=== PATIENT | female | born 1965 | race Caucasian/White ===

== ENCOUNTER → 2017-02-04 | Outpatient (CLI) | payer BC ==
[~2017-02-04] MED LIST: LISI-788 PO
[2017-02-04 12:59] LABS: BASO % 0.2 %; BASO ABS # 0.01 K/uL (0-0.2); COMPLETE YES; EOS % 0.9 %; HEMATOCRIT 46.3 % (37-47); IG% 0.2 %; LYMPH % 40.2 %; LYMPH ABS # 2.35 K/uL (1.2-3.4); MEAN CELL VOLUME 85.4 fL (80-100); MEAN CORPUSCULAR HEMOGLOBIN 28.8 pg (25-34); MEAN CORPUSCULAR HGB CONC 33.7 g/dl (32-36); MEAN PLATELET VOLUME 11.3 fL (7.4-10.4); MONO % 9.1 %; NEUT % 49.4 %; PLATELET COUNT 196 K/uL (130-400); RED BLOOD COUNT 5.42 M/uL (4.2-5.4); WHITE BLOOD COUNT 5.85 K/uL (4.8-10.8)
[2017-02-04 13:41] LABS: BLOOD UREA NITROGEN 18 mg/dl (7-18); CARBON DIOXIDE 28 mmol/L (21-32); CHLORIDE 106 mmol/L (98-107); CREATININE 0.79 mg/dl (0.60-1.20); GLUCOSE 92 mg/dl (70-99); SODIUM 143 mmol/L (136-145)
[2017-02-04 13:47] LABS: CALCIUM 9.2 mg/dl (8.5-10.1)
[2017-02-04 13:51] LABS: ALB/GLOB RATIO 1.3 (0.9-2); ALKALINE PHOSPHATASE 84 U/L (45-117); ALT/SGPT 24 U/L (12-78); AST/SGOT 14 U/L (15-37); CHOLESTEROL 188 mg/dl (0-200); CHOLESTEROL/HDL RATIO 4.6; HDL CHOLESTEROL 41 mg/dl; LDL CHOLESTEROL CALCULATED 124 mg/dl; TRIGLYCERIDES 116 mg/dl (0-150); VERY LOW DENSITY LIPOPROT CALC 23 mg/dl
[2017-02-04 14:28] LABS: LYME DISEASE AB IGG NEG (NEG)
[2017-02-04 14:32] LABS: LYME DISEASE AB IGM NEG (NEG)
== END | disposition home or self-care (01) ==
LOC: C.LABMFLN 08:53
PROVIDERS: ATTEND Family Medicine
DX: M25.50 Pain in unspecified joint (principal); W57.XXXA Bitten or stung by nonvenomous insect and other nonvenomous arthropods, initial encounter; E78.5 Hyperlipidemia, unspecified; I10 Essential (primary) hypertension

== ENCOUNTER → 2017-06-10 | Outpatient (CLI) | payer BC ==
[2017-06-10 14:28] LABS: BASO % 0.3 %; BASO ABS # 0.02 K/uL (0-0.2); COMPLETE YES; HEMATOCRIT 45.9 % (37-47); IG% 0.1 %; LYMPH % 36.7 %; LYMPH ABS # 2.53 K/uL (1.2-3.4); MEAN CORPUSCULAR HEMOGLOBIN 29.1 pg (25-34); MEAN CORPUSCULAR HGB CONC 34.2 g/dl (32-36); MEAN PLATELET VOLUME 11.8 fL (7.4-10.4); MONO % 6.8 %; NEUT % 55.1 %; PLATELET COUNT 182 K/uL (130-400); WHITE BLOOD COUNT 6.89 K/uL (4.8-10.8)
[2017-06-10 14:44] LABS: FERRITIN 88.1 ng/ml (8.0-388.0); THYROID STIMULATING HORMONE 2.69 uIu/ml (0.300-4.500)
== END | disposition home or self-care (01) ==
LOC: C.LABMFLN 08:37
PROVIDERS: ATTEND Family Medicine
DX: L65.9 Nonscarring hair loss, unspecified (principal)

== ENCOUNTER → 2017-11-01 | Outpatient (CLI) | payer BC | END | disposition home or self-care (01) | LOC: C.LABSPEC 17:42 | PROVIDERS: ATTEND Obstetrics & Gynecology | DX: R10.2 Pelvic and perineal pain (principal) ==

== ENCOUNTER 2017-11-29 09:25 | Day surgery (SDC) | payer BC ==
[2017-11-15 14:38] VITALS: Ht 154.9 cm; Wt 80.2 kg
--- NOTE | 2017-11-15 15:01 | PAT Medication Instructions ---
Service Date Nov 15, 2017. Current Home Medication List Hydrochlorothiazide (Hydrochlorothiazide), Unknown Dose PO QAM Lisinopril (Zestril), Unknown Dose PO QAM Medication Instructions For Your Scheduled Surgery - Hold the following medications the morning of surgery: Hydrochlorothiazide (Hydrochlorothiazide), Unknown Dose PO QAM Lisinopril (Zestril), Unknown Dose PO QAM If you have any questions please call us at [phone] or [phone] or [phone]
[2017-11-15 15:40] LABS: BASO % 0.3 %; BASO ABS # 0.02 K/uL (0-0.2); EOS % 0.7 %; EOS ABS # 0.05 K/uL (0-0.5); HEMATOCRIT 46.8 % (37-47); HEMOGLOBIN 16.2 g/dL (12.0-16.0); IG# 0.02 K/uL (0.00-0.02); LYMPH % 34.7 %; LYMPH ABS # 2.65 K/uL (1.2-3.4); MEAN CELL VOLUME 84.8 fL (80-100); MEAN CORPUSCULAR HEMOGLOBIN 29.3 pg (25-34); MEAN CORPUSCULAR HGB CONC 34.6 g/dl (32-36); MEAN PLATELET VOLUME 10.7 fL (7.4-10.4); MONO % 7.2 %; MONO ABS # 0.55 K/uL (0.11-0.59); NEUT % 56.8 %; NEUT ABS # 4.35 K/uL (1.4-6.5); PLATELET COUNT 201 K/uL (130-400); RED CELL DISTRIBUTION WIDTH CV 14.3 % (11.5-14.5); RED CELL DISTRIBUTION WIDTH SD 44.4 fL (36.4-46.3); WHITE BLOOD COUNT 7.64 K/uL (4.8-10.8)
[2017-11-15 15:49] LABS: CALCIUM 9.7 mg/dl (8.5-10.1); CREATININE 0.84 mg/dl (0.60-1.20); POTASSIUM 3.9 mmol/L (3.5-5.1)
[~2017-11-29] VITALS: Ht 154.9 cm; Wt 80.2 kg
[~2017-11-29 09:25] MED LIST changes: +ATROPINE SULFATE 0.1 MG/ML 5ML SYR IV PRN; +EpHEDrine SULFATE INJ 50 MG/ML AMP IV PRN; +HYDR12.55 PO; +HYDROmorphone INJ 2 MG/ML SYR/VIAL IV PRN; +LACTATED RINGER'S 1000ML 1,000 ML IV SCH; +LISI-725 PO; -LISI-788 PO; +ONDANSETRON INJ 2 MG/ML 2 ML VIAL IV PRN; +PHENYLEPHRINE 100MCG/ML 5ML SYR IV PRN
[2017-11-29 10:12] VITALS: BP 142/82; PULSE 70; TEMP 37.1; O2SAT 97
[2017-11-29] MEDS ORDERED: DEXAMETHASONE SOD INJ 4 MG/ML VIAL ONE (12:16)
[2017-11-29] MEDS ORDERED: LIDOCAINE HCL 2% 2 ML VIAL (20MG/ML) ONE (12:16)
[2017-11-29] MEDS ORDERED: ONDANSETRON INJ 2 MG/ML 2 ML VIAL ONE (12:16)
[2017-11-29] MEDS ORDERED: LARYING-O-JET KIT (LTA) ONE (12:16)
[2017-11-29] MEDS ORDERED: FENTANYL CITRATE INJ 50 MCG/1 ML 2 ML VIAL ONE ×3 (12:17→15:58)
[2017-11-29] MEDS ORDERED: MIDAZOLAM HCL 1 MG/ML 2ML VIAL ONE (12:17)
[2017-11-29] MEDS ORDERED: HYDROmorphone INJ 2 MG/ML SYR/VIAL ONE (12:17)
[2017-11-29 13:22] VITALS: PULSE 61; O2SAT 97
--- NOTE | 2017-11-29 13:30 | History & Physical Bridge Note ---
H&P Re-Evaluation Bridge Note: I have examined the patient, reviewed the History & Physical and in the interval since the performance of the History & Physical I have noted the following changes of clinical significance: No changes noted
[2017-11-29] MEDS ORDERED: BUPIVACAINE 0.5 % 5 MG/1 ML MPF 30ML VIAL ONE (13:46)
[2017-11-29] MEDS ORDERED: ACETAMINOPHEN 1000 MG/100 ML IV IV ONE (13:49)
[2017-11-29] MEDS ORDERED: GLYCOPYRROLATE INJ 0.2 MG/ML VIAL ONE (14:49)
[2017-11-29] MEDS ORDERED: NEOSTIGMINE METHYLSULFATE 5 MG/5 ML SYR ONE (14:49)
[2017-11-29] MEDS ORDERED: KETOROLAC TROMETHAMINE 30 MG/ML VIAL ONE (15:10)
[2017-11-29] MEDS ORDERED: TISSEEL FIBRIN SEALANT 4ML TOP ONE (15:11)
[2017-11-29] MEDS ORDERED: SODIUM CHLORIDE 0.9% 1000ML 1,000 ML IV SCH (15:24)
--- NOTE | 2017-11-29 15:24 | [facility] Post Operative Brief Note ---
Immediate Operative Summary Operative Date Nov 29, 2017. 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 Procedure(s) Performed Robotic assisted laparoscopic bilateral salpingo-oophorectomy. Surgeon Dr. Castellanos Process Eng Surgeon(s) None Estimated Blood Loss 5 ml Findings Consistent with Post-Op Diagnosis Specimens A: Bilateral fallopian tubes and ovaries. Drains None Anesthesia Type General Complication(s) none Disposition Accompanied Pt To Recover: no Disposition: Recovery Room / PACU
[2017-11-29] MEDS ORDERED: MTR600X PO (15:26)
[2017-11-29] MEDS ORDERED: OXYC-57 PO (15:26)
--- NOTE | 2017-11-29 15:27 | Discharge Instructions ---
Discharge Instructions Date of Service Nov 29, 2017. 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 Instructions / Follow-Up Instructions / Follow-Up ACTIVITY RECOMMENDATIONS: * Rest the first 2-3 days. You should be back to your normal activity levels by day 3. * No heavy lifting for 2 weeks. * No intercourse, tampons or douching for 1-2 weeks. * You may shower the next day. * Do not drive anytime that you are taking narcotic pain medicines. RETURN TO SCHOOL/WORK: * May return to school or work after 2-3 days. DIET: Nausea may occur in the immediate post-operative period. If so, take clear liquids such as tea, bouillon, apple juice until all nausea has subsided, then resume usual diet. MEDICATIONS: Resume previous medications unless instructed otherwise by your surgeon. Ibuprofen 200mg 2-3 tablets every 4-6 hours as needed -- OR -- Aleve 2 tablets every 8-12 hours as needed for post-operative discomfort Medications are over the counter. Tylenol may be used if above medications are contraindicated or not preferred. Medication should be taken with food or milk. Do not take on an empty stomach. SPECIAL CARE INSTRUCTIONS: * Check temperature twice daily for one week. report any elevation over 101 degrees. * You may experience some vagina spotting and/or bleeding. This is normal for 1 -2 weeks and should not be heavier than a normal period. If it is unusual in amount, call your physician. * Post-operative discomfort may consist of a sore throat, a "bloated" feeling and pain in the shoulders. these are normal symptoms, which usually only last for 2-3 days. * Remove band-aids tomorrow and shower. There is no need to replace band-aids unless there is drainage or discomfort. FOLLOW UP VISIT: Call your doctor's office for a post-operative 2 week visit if not already scheduled. Current Hospital Diet Patient's current hospital diet: Discharge Diet Recommended Diet: Regular Diet Procedures Procedures Performed: Robotic assisted laparoscopic bilateral salpingo-oophorectomy. Pending Studies Studies pending at discharge: no Medical Emergencies . Who to Call and When: Medical Emergencies: If at any time you feel your situation is an emergency, please call 911 immediately. . Non-Emergent Contact Non-Emergency issues call your: [employer] [employer] . . "Provider Documentation" section prepared by Dex Castellanos. .
[2017-11-29] MEDS ORDERED: OXYCODONE/ACETAMINOPHEN 5-325 TAB PO PRN ×2 (15:30)
[2017-11-29] MEDS ORDERED: KETOROLAC TROMETHAMINE 30 MG/ML VIAL IV. PRN (15:30)
[2017-11-29] MEDS ORDERED: IBUPROFEN 600 MG TAB PO PRN (15:30)
[2017-11-29] MEDS ORDERED: PROMETHAZINE HCL INJ 25 MG in SODIUM CHLORIDE 0.9% 50ML 50 ML IV PRN (15:30)
[2017-11-29] MEDS ORDERED: ONDANSETRON INJ 2 MG/ML 2 ML VIAL IV PRN (15:30)
[2017-11-29] MEDS ORDERED: FENTANYL CITRATE INJ 50 MCG/1 ML 2 ML VIAL IV PRN ×2 (16:00→16:05)
[2017-11-29] MEDS ORDERED: ALBUT/IPRATROP 3MG/0.5MG NEB 3 ML VIAL INH SCH (16:00)
[2017-11-29 16:30] VITALS: BP 118/57; PULSE 53; TEMP 36.4; O2SAT 93
--- NOTE | 2017-11-29 16:30 | Anesthesiology Progress Note ---
Anesthesia Post Op Note Date & Time Nov 29, 2017 at 16:29 Vital Signs Pain Intensity: 0 Vital Signs Past 12 Hours Date Time Temp Pulse Resp B/P (MAP) Pulse Ox O2 Delivery O2 Flow Rate FiO2 11/29/17 16:22 125/78 11/29/17 16:21 59 19 91 11/29/17 16:21 59 19 11/29/17 16:17 137/75 11/29/17 16:16 48 15 11/29/17 16:16 49 15 94 11/29/17 16:15 46 15 96 11/29/17 16:15 46 15 11/29/17 16:13 36.7 50 17 137/75 (101) 95 Nasal Cannula 2 11/29/17 16:12 132/69 11/29/17 16:10 47 13 96 11/29/17 16:10 47 13 11/29/17 16:09 53 13 95 11/29/17 16:09 54 13 11/29/17 16:07 127/75 11/29/17 16:04 48 14 98 11/29/17 16:04 49 14 11/29/17 16:03 51 15 90 11/29/17 16:03 50 15 11/29/17 16:02 135/79 11/29/17 15:58 51 18 95 11/29/17 15:58 51 18 11/29/17 15:57 159/79 11/29/17 15:53 51 17 11/29/17 15:53 51 17 95 11/29/17 15:52 143/84 11/29/17 15:48 54 13 11/29/17 15:48 52 13 98 11/29/17 15:47 144/71 11/29/17 15:43 61 20 95 11/29/17 15:43 61 20 11/29/17 15:42 164/78 11/29/17 15:40 167/92 11/29/17 15:38 36.5 62 12 164/78 (94) 94 Oxymask 10 11/29/17 13:22 61 14 97 Room Air 11/29/17 10:12 37.1 70 18 142/82 (102) 97 Room Air Notes Mental Status: alert / awake / arousable, participated in evaluation Pt Amnestic to Procedure: Yes Nausea / Vomiting: adequately controlled Pain: adequately controlled Airway Patency, RR, SpO2: stable & adequate BP & HR: stable & adequate Hydration State: stable & adequate Anesthetic Complications: no major complications apparent
[2017-11-29 17:10] VITALS: BP 116/58; PULSE 50; TEMP 36.4; O2SAT 93
--- NOTE | 2017-11-29 18:19 | OPERATIVE REPORT ---
DATE OF OPERATION: 11/29/2017 PREOPERATIVE DIAGNOSIS: [place] allelic mutation of the RAD51C gene. POSTOPERATIVE DIAGNOSIS: Same. PROCEDURE: Robotically assisted laparoscopic bilateral salpingo-oophorectomy. SURGEON: Dr. Castellanos. CENTRAL SERVICES TECH: None. ESTIMATED BLOOD LOSS: 5 mL. FINDINGS: Consistent with postoperative diagnosis. SPECIMENS: Bilateral fallopian tubes and ovaries. DRAINS: None. ANESTHETIC: General. COMPLICATIONS: None. DISPOSITION: Recovery. DESCRIPTION OF PROCEDURE: Fanny was given a general anesthetic, prepped and draped in dorsal lithotomy position. No antibiotics were indicated. Romero catheter placed in her bladder and a cervical acorn device was attached to her cervix with an Allis clamp. Gloves were changed and a subumbilical incision was made with scalpel. Using open technique, we dissected down through subcutaneous fat to the fascia in the midline. Rectus muscle split and peritoneal cavity entered. Blunt-tipped Trina trocar then placed and balloon inflated to stabilize the port. CO2 gas used to insufflate the abdomen. FINDINGS: Upper abdomen normal, no sign of visceral organ injury. Deep Trendelenburg position obtained. Both adnexa appeared within normal limits. There were some mild adhesions of the left fallopian tube to the abdominal sidewall these were flimsy. Both ureters followed a normal course. Two robotic ports, 1 in the left, 1 in the right placed, monopolar carey in arm #1, bipolar [place] in arm #2, a 5 mm left upper quadrant accessory port was placed, 2 blunt-tipped. Procedure was begun using the robot, identified the ureter on the left side and then coagulated the left infundibulopelvic ligament. This was then cut with monopolar carey. The ovary was then released from its lateral attachments and then the uteroovarian blood supply was coagulated and cut as well. We stayed well away from the left ureter. Ovary and tube was placed in the cul-de-sac. Now, we removed as much fallopian tube as possible. Same exact process was repeated on the right one. Both adnexa were removed. Hemostasis was excellent. We undocked the robot after removing the instruments. Using a 5 mm laparoscope used through the umbilical port, a 10 mm surgical bag, both specimens were easily placed and using a grasper and then the bag was removed through the umbilical port. At this stage after generous irrigation and suction, we did apply 4 mL of Tisseel to both adnexa, both ureters on left and right side were seen peristalsing normally and gas was allowed to escape. Ports removed. Incisions injected with 0.5% Marcaine. Fascia carefully closed in the umbilical incision using 0 Vicryl, subcutaneous fat closed as well and 4-0 subcuticular Monocryl closures. Instruments removed from the cervix and vagina. Romero catheter removed. Urine was clear. The patient sent to recovery room in stable condition. Sponge and instrument counts correct. I attest to the content of the Intraoperative Record and any orders documented therein. Any exception s are noted below.
== END 2017-11-29 17:32 | disposition home or self-care (01) ==
LOC: C.ACU 09:25
PROVIDERS: ATTEND Obstetrics & Gynecology
DX: Z15.89 Genetic susceptibility to other disease (principal); K21.9 Gastro-esophageal reflux disease without esophagitis; E78.5 Hyperlipidemia, unspecified; I10 Essential (primary) hypertension; Z82.49 Family history of ischemic heart disease and other diseases of the circulatory system; Z80.3 Family history of malignant neoplasm of breast; Z79.899 Other long term (current) drug therapy
CPT/HCPCS: 58661; S2900

== ENCOUNTER → 2017-12-06 | Outpatient (CLI) | payer BC ==
[~2017-12-06] MED LIST changes: -ATROPINE SULFATE 0.1 MG/ML 5ML SYR IV PRN; -EpHEDrine SULFATE INJ 50 MG/ML AMP IV PRN; -HYDROmorphone INJ 2 MG/ML SYR/VIAL IV PRN; -LACTATED RINGER'S 1000ML 1,000 ML IV SCH; +MTR600X PO; -ONDANSETRON INJ 2 MG/ML 2 ML VIAL IV PRN; +OXYC-57 PO; -PHENYLEPHRINE 100MCG/ML 5ML SYR IV PRN
== END | disposition home or self-care (01) ==
LOC: C.LABMFLN 13:23
PROVIDERS: ATTEND Family Medicine
DX: N39.0 Urinary tract infection, site not specified (principal)